=== PATIENT | female | born 1975 | race African-American/Black ===

== ENCOUNTER 2016-04-29 08:46 | Emergency (ER) | payer OTHER ==
[~2016-04-29] VITALS: Ht 160 cm; Wt 104.6 kg
[~2016-04-29 08:46] MED LIST: NAPROSYN500 MG PO; NOHOMEMEDS; NORCO 5/3251 TABLET PO
[2016-04-29 09:24] LABS: HEMATOCRIT 42.3 % (36.0-46.0); MCH 29.1 PG (29.0-34.0); MCHC 32.4 G/DL (30.0-36.0); MEAN PLAT.VOLUME 10.2 uM^3 (9.5-12.4); PLATELET COUNT 261 K/uL (156-360); RBC DIS.WIDTH-CV 12.9 % (11.8-14.6); RBC DIS.WIDTH-SD 41.8 % (39-53); WHITE BLOOD COUNT 5.7 K/uL (4.1-10.2)
[2016-04-29 11:32] LABS: ADD MIUA? YES; BILIRUBIN NEGATIVE; BLOOD LARGE; COLOR YELLOW ((YELLOW)); GLUCOSE (STRIP) NEGATIVE; KETONES NEGATIVE; LEUKOCYTES NEGATIVE; NITRITE NEGATIVE; PROTEIN (STRIP) NEGATIVE; SPECIFIC GRAVITY 1.024 (1.000-1.030); UROBILINOGEN 0.2 MG/DL (0.2-1.0)
[2016-04-29 11:43] LABS: BACTERIA RARE /HPF; EPITHELIAL CELLS RARE /HPF; MUCUS TRACE /LPF; RED BLOOD CELLS TNTC /HPF (0-5); UCUL ADDED? NO; WHITE BLOOD CELLS 0-5 /HPF (0-5)
[2016-04-29 12:04] VITALS: BP 144/77
== END 2016-04-29 12:04 | disposition home or self-care (01) ==
LOC: EME 08:46
PROVIDERS: Emergency Medicine
DX: N93.9 Abnormal uterine and vaginal bleeding, unspecified (principal)
CPT/HCPCS: 81003; 84702; 85027; 86900; 86901; 99281; 99283

== ENCOUNTER 2016-09-18 02:32 | Observation (INO) | payer OTHER ==
[~2016-09-18] VITALS: Ht 160 cm; Wt 104.0 kg
[2016-09-18 03:04] LABS: HEMATOCRIT 40.4 % (36.0-46.0); MCHC 32.4 G/DL (30.0-36.0); MCV 89.6 FL (83-99); MEAN PLAT.VOLUME 10.2 uM^3 (9.5-12.4); PLATELET COUNT 244 K/uL (156-360); RBC DIS.WIDTH-CV 12.4 % (11.8-14.6); RBC DIS.WIDTH-SD 40.7 % (39-53); RED BLOOD COUNT 4.51 M/uL (3.80-5.20); WHITE BLOOD COUNT 7.8 K/uL (4.1-10.2)
[2016-09-18 03:12] LABS: CHLORIDE 106 mEq/L (99-109); POTASSIUM 4.1 mEq/L (3.7-5.4); SODIUM 139 mEq/L (136-147)
[2016-09-18 03:14] LABS: GLUCOSE 118 mg/dL (70-99)
[2016-09-18 03:15] LABS: ANION GAP 9 MEQ/L (2-14)
[2016-09-18 03:18] LABS: GFR ESTIMATE (CALCULATED) > 59 mL/min/
[2016-09-18 03:19] LABS: UREA NITROGEN (BUN) 21 mg/dL (9-23)
[2016-09-18 03:25] LABS: PROTHROMBIN TIME 10.1 (9.2-11.2); PTT 29.1 (25-32)
[2016-09-18 03:37] LABS: ADD MIUA? NO; BILIRUBIN NEGATIVE; BLOOD NEGATIVE; COLOR STRAW ((YELLOW)); GLUCOSE (STRIP) NEGATIVE; KETONES NEGATIVE; LEUKOCYTES NEGATIVE; NITRITE NEGATIVE; PROTEIN (STRIP) NEGATIVE; SPECIFIC GRAVITY 1.014 (1.000-1.030); UCUL ADDED? NO; UROBILINOGEN 0.2 MG/DL (0.2-1.0)
[2016-09-18 03:40] LABS: TROP-I INTERPRETATION NEGATIVE; TROPONIN-I < 0.01 ng/mL (0.0-0.30)
[2016-09-18 04:31] LABS: HDL CHOLESTEROL 43 MG/DL (Desirable>=50); LDL CHOLESTEROL 130 mg/dL (Desirable<100); NON-HDL CHOLESTEROL 160 mg/dL (Desirable<160); TOTAL CHOLESTEROL 203 mg/dL (Desirable<200); TRIGLYCERIDES 149 MG/DL (Normal: <150)
[2016-09-18 08:23] LABS: Estimated Average Glucose 146 mg/dL (70-123); HEMOGLOBIN A1c (GLYCOHEMOGLOB) 6.7 % HGB (Below 5.7)
[2016-09-18 08:53] VITALS: BP 131/74
[2016-09-18 10:04] LABS: TROP-I INTERPRETATION NEGATIVE; TROPONIN-I < 0.01 ng/mL (0.0-0.30)
[2016-09-18 11:22] VITALS: BP 125/74
[2016-09-18] MEDS ORDERED: PRAVASTATIN SOD20 MG PO (13:27)
[2016-09-18] MEDS ORDERED: ASPIRIN EC325 MG PO (13:27)
[2016-09-18 14:30] LABS: AMPHETAMINES QUANT VALUE 0 NG/ML; BARBITUATES QUANT VALUE 0 NG/ML; BENZODIAZEPINES QUANT VALUE 0 NG/ML; BENZODIAZEPINES, URINE SCREEN Negative (200 ng/mL); MARIJUANA QUANT VALUE 0 NG/ML; OPIATES QUANTITATIVE VALUE 0 NG/ML; PHENCYCLIDINE QUANT VALUE 0 NG/ML
[2016-09-18 16:23] VITALS: BP 116/71
== END 2016-09-18 18:40 | disposition home or self-care (01) ==
LOC: EME 02:32 → EDOF 04:44 → 5WEST 08:48
PROVIDERS: Emergency Medicine; Hospitalist
DX: R20.8 Other disturbances of skin sensation (principal); R06.02 Shortness of breath; R20.0 Anesthesia of skin; F41.9 Anxiety disorder, unspecified; R73.03 Prediabetes; R11.0 Nausea; R41.0 Disorientation, unspecified; R53.1 Weakness; F17.200 Nicotine dependence, unspecified, uncomplicated
CPT/HCPCS: 70450; 70551; 71020; 80048; 80061; 80306 90; 81003; 82948; 83036; 84484; 85027; 85610; 85730; 93005; 93306; 99281; 99285; G0378; J1650; J1815; J2060

== ENCOUNTER 2017-05-30 07:36 | Emergency (ER) | payer OTHER ==
[~2017-05-30] VITALS: Ht 160 cm; Wt 107.4 kg
[~2017-05-30 07:36] MED LIST changes: +ASPIRIN EC325 MG PO; +PRAVASTATIN SOD20 MG PO
[2017-05-30 07:38] VITALS: BP 138/98
[2017-05-30] MEDS ORDERED: ANUSOL-HC21 GM PR (08:27)
[2017-05-30] MEDS ORDERED: DIFLUCAN150 MG PO (08:27)
[2017-05-30] MEDS ORDERED: NYSTOP60 GM TP (08:27)
[2017-05-30] MEDS ORDERED: KEFLEX500 MG PO (08:27)
[2017-05-30] MEDS ORDERED: ATARAX,VISTARIL50 MG PO (08:30)
== END 2017-05-30 08:51 | disposition home or self-care (01) ==
LOC: EME 07:36
DX: B36.9 Superficial mycosis, unspecified (principal); L73.9 Follicular disorder, unspecified; K64.9 Unspecified hemorrhoids; B37.3 Candidiasis of vulva and vagina; R73.03 Prediabetes; F17.200 Nicotine dependence, unspecified, uncomplicated; Z83.3 Family history of diabetes mellitus
CPT/HCPCS: 99281; 99282

== ENCOUNTER 2017-08-14 10:09 | Inpatient (IN) | payer OTHER ==
[~2017-08-14] VITALS: Ht 160 cm; Wt 102.9 kg
[~2017-08-14 10:09] MED LIST changes: +ANUSOL-HC21 GM PR; +ATARAX,VISTARIL50 MG PO; +DIFLUCAN150 MG PO; +KEFLEX500 MG PO; +NYSTOP60 GM TP
[2017-08-14 10:47] LABS: HEMATOCRIT 40.1 % (36.0-46.0); HEMOGLOBIN 13.1 G/DL (11.9-15.5); MCH 29.6 PG (29.0-34.0); MCHC 32.7 G/DL (30.0-36.0); MCV 90.5 FL (83-99); PLATELET COUNT 263 K/uL (156-360); RBC DIS.WIDTH-CV 12.1 % (11.8-14.6); RBC DIS.WIDTH-SD 40.3 % (39-53); RED BLOOD COUNT 4.43 M/uL (3.80-5.20); WHITE BLOOD COUNT 5.3 K/uL (4.1-10.2)
[2017-08-14 10:55] LABS: CHLORIDE 106 mEq/L (99-109); POTASSIUM 3.7 mEq/L (3.7-5.4); SODIUM 138 mEq/L (136-147)
[2017-08-14 10:57] LABS: GLUCOSE 118 mg/dL (70-99)
[2017-08-14 11:01] LABS: CREATININE 0.7 mg/dL (0.6-1.3); GFR ESTIMATE (CALCULATED) > 59 mL/min/; UREA NITROGEN (BUN) 15 mg/dL (9-23)
[2017-08-14 12:33] LABS: TROP-I INTERPRETATION NEGATIVE; TROPONIN-I < 0.01 ng/mL (0.0-0.30)
[2017-08-14] MEDS ORDERED: XANAX0.5 MG PO (12:50)
[2017-08-14] MEDS ORDERED: ADVIL,NUPRIN,M200 MG PO (12:50)
[2017-08-14 14:43] LABS: APPEARANCE SL.HAZY ((CLEAR)); BILIRUBIN NEGATIVE; BLOOD NEGATIVE; COLOR YELLOW ((YELLOW)); GLUCOSE (STRIP) NEGATIVE; KETONES NEGATIVE; LEUKOCYTES TRACE; NITRITE NEGATIVE; PROTEIN (STRIP) 30; SPECIFIC GRAVITY 1.028 (1.000-1.030)
[2017-08-14 14:53] LABS: BACTERIA NONE SEEN /HPF; EPITHELIAL CELLS 2+ /HPF; MUCUS 2+ /LPF; RED BLOOD CELLS 0-5 /HPF (0-5); UCUL ADDED? NO; WHITE BLOOD CELLS 0-5 /HPF (0-5)
[2017-08-14 19:32] VITALS: BP 130/90
[2017-08-14 22:57] VITALS: BP 126/76
[2017-08-15 03:50] VITALS: BP 126/74
[2017-08-15 05:21] LABS: BASOPHIL (%) 0.5 % (0-1); EOSINOPHIL (%) 2.9 % (0-5); EOSINOPHIL COUNT 0.2 K/uL (0-0.3); HEMATOCRIT 38.6 % (36.0-46.0); HEMOGLOBIN 12.4 G/DL (11.9-15.5); IMMATURE GRANULOCYTE (%) 0.2 % (0.0-0.7); LYMPHOCYTE (%) 34.8 % (15-42); LYMPHOCYTE COUNT 2.1 K/uL (1.0-2.8); MCH 29.5 PG (29.0-34.0); MCHC 32.1 G/DL (30.0-36.0); MCV 91.7 FL (83-99); MONOCYTE (%) 9.9 % (3-12); MONOCYTE COUNT 0.6 K/uL (0-0.8); NEUTROPHIL (%) 51.7 % (45-76); NEUTROPHIL COUNT 3.1 K/uL (1.8-6.4); PLATELET COUNT 246 K/uL (156-360); RBC DIS.WIDTH-CV 12.2 % (11.8-14.6); RBC DIS.WIDTH-SD 40.9 % (39-53); RED BLOOD COUNT 4.21 M/uL (3.80-5.20)
[2017-08-15 05:43] LABS: PTT 28.2 SEC (25-37)
[2017-08-15 06:04] LABS: HDL CHOLESTEROL 34 MG/DL (Desirable>=50); LDL CHOLESTEROL 112 mg/dL (Desirable<100); NON-HDL CHOLESTEROL 135 mg/dL (Desirable<160); TOTAL CHOLESTEROL 169 mg/dL (Desirable<200); TRIGLYCERIDES 113 MG/DL (Normal: <150)
[2017-08-15 07:07] VITALS: BP 134/86
[2017-08-15] MEDS ORDERED: FLOLIPID40 MG/5 ML PO (14:56)
== END 2017-08-15 16:09 | disposition home or self-care (01) | DRG 103 ==
LOC: EME 10:09 → EDOF 12:44 → 5SOUTH 12:44 → ENRESERV 13:05 → 5SOUTH 14:29
PROVIDERS: Emergency Medicine; Internal Medicine
DX: G43.109 Migraine with aura, not intractable, without status migrainosus (principal); R79.89 Other specified abnormal findings of blood chemistry; F41.9 Anxiety disorder, unspecified; F17.200 Nicotine dependence, unspecified, uncomplicated; E66.3 Overweight; Z68.41 Body mass index [BMI] 40.0-44.9, adult
CPT/HCPCS: 70450; 70551; 71046; 80048; 80061; 81003; 84484; 85025; 85027; 85610; 85730; 87077; 87086; 87186; 93005; 99281; 99285; J1885; J7030

== ENCOUNTER 2017-09-26 10:45 | Emergency (ER) | payer OTHER ==
[~2017-09-26] VITALS: Ht 160 cm; Wt 102.0 kg
[~2017-09-26 10:45] MED LIST changes: +ADVIL,NUPRIN,M200 MG PO; +FLOLIPID40 MG/5 ML PO; +XANAX0.5 MG PO
[2017-09-26 11:47] LABS: BASOPHIL (%) 0.4 % (0-1); EOSINOPHIL (%) 6.3 % (0-5); EOSINOPHIL COUNT 0.3 K/uL (0-0.3); HEMATOCRIT 40.8 % (36.0-46.0); HEMOGLOBIN 13.5 G/DL (11.9-15.5); IMMATURE GRANULOCYTE (%) 0.2 % (0.0-0.7); LYMPHOCYTE COUNT 2.1 K/uL (1.0-2.8); MCH 29.5 PG (29.0-34.0); MCHC 33.1 G/DL (30.0-36.0); MCV 89.1 FL (83-99); MONOCYTE (%) 8.7 % (3-12); MONOCYTE COUNT 0.5 K/uL (0-0.8); NEUTROPHIL (%) 44.4 % (45-76); NEUTROPHIL COUNT 2.3 K/uL (1.8-6.4); PLATELET COUNT 260 K/uL (156-360); RBC DIS.WIDTH-CV 12.2 % (11.8-14.6); RBC DIS.WIDTH-SD 39.7 % (39-53); RED BLOOD COUNT 4.58 M/uL (3.80-5.20); WHITE BLOOD COUNT 5.3 K/uL (4.1-10.2)
[2017-09-26 12:00] LABS: ALBUMIN 3.8 g/dL (3.2-4.8); CHLORIDE 108 mEq/L (99-109); SODIUM 139 mEq/L (136-147)
[2017-09-26 12:02] LABS: GLUCOSE 111 mg/dL (70-99); TOTAL PROTEIN 7.1 g/dL (6.4-8.3)
[2017-09-26 12:04] LABS: TOTAL BILIRUBIN 0.4 mg/dL (0.0-1.0)
[2017-09-26 12:05] LABS: ALKALINE PHOSPHATASE 83 IU/L (3-129)
[2017-09-26 12:06] LABS: CREATININE 0.8 mg/dL (0.6-1.3); GFR ESTIMATE (CALCULATED) > 59 mL/min/
[2017-09-26 12:07] LABS: AST (GOT) 20 IU/L (2-34); UREA NITROGEN (BUN) 13 mg/dL (9-23)
[2017-09-26 12:09] LABS: ALT (GPT) 49 IU/L (3-49); LIPASE 16 U/L (1.0-51.0)
[2017-09-26 12:10] LABS: APPEARANCE CLEAR ((CLEAR)); BILIRUBIN NEGATIVE; BLOOD MODERATE; COLOR YELLOW ((YELLOW)); GLUCOSE (STRIP) NEGATIVE; KETONES NEGATIVE; LEUKOCYTES NEGATIVE; NITRITE NEGATIVE; PROTEIN (STRIP) NEGATIVE; SPECIFIC GRAVITY 1.019 (1.000-1.030); UROBILINOGEN 0.2 MG/DL (0.2-1.0)
[2017-09-26 12:14] LABS: BACTERIA RARE /HPF; EPITHELIAL CELLS RARE /HPF; MUCUS TRACE /LPF; RED BLOOD CELLS 0-5 /HPF (0-5); UCUL ADDED? NO; WHITE BLOOD CELLS 0-5 /HPF (0-5)
[2017-09-26 12:16] LABS: QUANTITATIVE HCG < 4.0 MIU/ML
[2017-09-26] MEDS ORDERED: BENTYL20 MG PO (13:47)
[2017-09-26] MEDS ORDERED: AUGMENTIN875 MG PO (13:47)
[2017-09-26 14:28] VITALS: BP 153/78
== END 2017-09-26 14:35 | disposition home or self-care (01) ==
LOC: EME 10:45
PROVIDERS: Emergency Medicine
DX: K80.20 Calculus of gallbladder without cholecystitis without obstruction (principal); K21.9 Gastro-esophageal reflux disease without esophagitis; F32.9 Major depressive disorder, single episode, unspecified; F17.200 Nicotine dependence, unspecified, uncomplicated; Z87.440 Personal history of urinary (tract) infections
CPT/HCPCS: 71046; 76705; 80053; 81003; 83690; 84702; 85025; J1885; J7030